=== PATIENT | female | born 1980 | race Caucasian/White ===

== ENCOUNTER 2018-04-08 20:17 | Emergency (ER) | payer BC, MEDICAID ==
[~2018-04-08] VITALS: Ht 152.4 cm; Wt 79.4 kg
[2018-04-08 20:29] VITALS: BP_SYST 135
--- NOTE | 2018-04-08 20:34 | NUR ---
Placed in room 01 . Placed on clinical assoc, blood pressure machine and pulse oximeter. To gown for exam. Side rails up.
--- NOTE | 2018-04-08 20:50 | NUR ---
ER at bedside examining patient.
--- NOTE | 2018-04-08 20:50 | NUR ---
Pt is AAOx4. Pt states abd pain 07/10, which feels like "cramping" that arose suddenly earlier today. Pt states that she originally thought it was food poisoning because she has thrown up numerous times after she ate earlier today. Pt states + nausea and vomitting, "more times than she can count". VSS. Will continue to monitor.
[2018-04-08] MEDS ORDERED: MORPHINE 4 MG/ML INJ. SYRINGE IVP ONE (21:00)
[2018-04-08] MEDS ORDERED: NS 1000 ML BAG IV ONE (21:00)
[2018-04-08] MEDS ORDERED: PROCHLORPERAZINE EDISYLATE 10 MG/2 ML VIAL IVP ONE (21:00)
[2018-04-08] MEDS ORDERED: DIPHENHYDRAMINE INJ 50 MG/ML VIAL IVP ONE (21:00)
[2018-04-08 21:12] LABS: BILIRUBIN,URINE NEGATIVE (NEGATIVE); BLOOD, URINE NEGATIVE (NEGATIVE); CLARITY/URINE CLEAR (CLEAR); COLOR,URINE YELLOW (YELLOW); GLUCOSE,URINE NEGATIVE (NEGATIVE); KETONES,URINE 3+ (NEGATIVE); LEUKOCYTE ESTERASE ,URINE NEGATIVE (NEGATIVE); NITRITE, URINE NEGATIVE (NEGATIVE); PROTEIN URINE 1+ (NEGATIVE); UROBILINOGEN,URINE 0.2 (0.2-1.0)
[2018-04-08 21:32] LABS: BACTERIA,URINE FEW /HPF (None Seen); MUCUS,URINE 1+ /LPF (None Seen); RBC,URINE 0-3 /HPF (0-3)
[2018-04-08 21:33] LABS: HEMOGLOBIN 13.7 g/dL (12.0-16.0); LYMPHOCYTES # (AUTO) 0.7 K/uL (1.0-5.5); MONOCYTES # (AUTO) 0.2 K/uL (0.0-1.0); NEUTROPHILS # (AUTO) 8.2 K/uL (1.8-7.7)
[2018-04-08 21:38] LABS: BASOPHILS # (AUTO) 0.1 K/uL (0.0-0.2); BASOPHILS % (AUTO) 1.4 % (0.0-2.0); EOSINOPHILS % (AUTO) 0.1 % (0.0-4.0); HEMATOCRIT 39.5 % (36-48); LYMPHOCYTES % (AUTO) 7.6 % (20.5-51.5); MEAN CORPUSCULAR HEMOGLOBIN 32 pg (27-31); MEAN CORPUSCULAR HGB CONC 35 % (32-36); MEAN CORPUSCULAR VOLUME 91 fL (79.0-98.0); MONOCYTES % (AUTO) 2.4 % (1.7-9.3); NEUTROPHILS % (AUTO) 88.5 % (40.0-70.0); PLATELET COUNT (AUTO) 221 K/uL (130-430); RED BLOOD CELL COUNT(AUTO) 4.33 MIL/uL (4.2-6.2); WHITE BLOOD COUNT (AUTO) 9.2 K/uL (4.8-10.8)
[2018-04-08 21:42] LABS: CALCIUM 10.2 mg/dL (8.4-11.0); CREATININE 1.02 mg/dL (0.55-1.30); POTASSIUM 3.7 mmol/L (3.5-5.1)
[2018-04-08 21:47] LABS: ALBUMIN 4.3 g/dL (3.4-4.8); TOTAL BILIRUBIN 0.5 mg/dL (0.0-1.0)
--- NOTE | 2018-04-08 22:00 | NUR ---
Pt resting comfortably in bed with eyes closed, symmetrical rise and fall of chest noted, breathing is even and unlabored. VSS, no signs of distress noted. Family remains at bedside. Will continue to monitor.
--- NOTE | 2018-04-08 23:00 | NUR ---
Pt continues to rest comfortably in bed, VSS, no signs of distress noted. Pt states pain is "a lot better than before". Will continue to monitor.
[2018-04-09 00:16] VITALS: BP_SYST 133
--- NOTE | 2018-04-09 00:16 | NUR ---
Patient given written and verbal discharge instructions and verbalizes understanding. ER MD discussed with patient the results and treatment provided. Patient in stable condition. ID arm band removed. IV catheter removed intact and dressing applied, no active bleeding. Rx of Zofran given. Patient educated on pain management and to follow up with PMD. Pain Scale 0/10. Opportunity for questions provided and answered. Medication side effect fact sheet provided.
== END 2018-04-09 00:16 | disposition home or self-care (01) ==
LOC: SED 20:17
DX: R10.84 Generalized abdominal pain (principal); R11.2 Nausea with vomiting, unspecified; E05.90 Thyrotoxicosis, unspecified without thyrotoxic crisis or storm; Z85.41 Personal history of malignant neoplasm of cervix uteri
CPT/HCPCS: 36415; 80053; 81000; 83605; 85025; 87040; 87086; 96361; 96374; 96375; 99285; J0780; J1200; J2270; J7030

== ENCOUNTER 2019-02-28 20:40 | Emergency (ER) | payer BC ==
[~2019-02-28] VITALS: Ht 152.4 cm; Wt 80.7 kg
[2019-02-28 20:52] VITALS: BP_SYST 121
[2019-02-28] MEDS ORDERED: NACL 0.9% 1,000 ML IV ONE (21:15)
[2019-02-28 22:00] LABS: CALCIUM 9.1 mg/dL (8.4-11.0); CREATININE 1.1 mg/dL (0.55-1.30); POTASSIUM 3.9 mmol/L (3.5-5.1)
[2019-02-28 22:05] LABS: PROTHROMBIN TIME 9.9 SECS (9.5-12.5)
[2019-02-28 22:07] LABS: WHITE BLOOD COUNT (AUTO) 5.7 K/uL (4.8-10.8)
[2019-02-28 22:08] LABS: BASOPHILS % (AUTO) 0.6 % (0.0-2.0); EOSINOPHILS % (AUTO) 2.3 % (0.0-4.0); HEMATOCRIT 41.4 % (36-48); HEMOGLOBIN 13.8 g/dL (12.0-16.0); LYMPHOCYTES # (AUTO) 1.7 K/uL (1.0-5.5); LYMPHOCYTES % (AUTO) 30.2 % (20.5-51.5); MEAN CORPUSCULAR HEMOGLOBIN 30 pg (27-31); MEAN CORPUSCULAR HGB CONC 33 % (32-36); MEAN CORPUSCULAR VOLUME 90 fL (79.0-98.0); MONOCYTES % (AUTO) 6.1 % (1.7-9.3); NEUTROPHILS # (AUTO) 3.5 K/uL (1.8-7.7); NEUTROPHILS % (AUTO) 60.8 % (40.0-70.0); PLATELET COUNT (AUTO) 227 K/uL (130-430); RED BLOOD CELL COUNT(AUTO) 4.58 MIL/uL (4.2-6.2); RED CELL DISTRIBUTION WIDTH 13.3 % (9.0-15.0)
[2019-02-28 22:09] LABS: EOSINOPHILS # (AUTO) 0.1 K/uL (0.0-0.4); MONOCYTES # (AUTO) 0.3 K/uL (0.0-1.0)
[2019-02-28 22:15] LABS: ALBUMIN 3.7 g/dL (3.4-4.8); THYROID STIMULATING HORMONE 42.17 uIu/mL (0.36-3.74); TOTAL BILIRUBIN 0.2 mg/dL (0.0-1.0)
[2019-02-28] MEDS ORDERED: LEVOTHYROXINE SODIUM 0.1 MG VIAL IVP ONE ×2 (22:30→22:48)
[2019-03-01 00:18] VITALS: BP_SYST 118
== END 2019-03-01 00:18 | disposition home or self-care (01) ==
LOC: SED 20:40
DX: E03.9 Hypothyroidism, unspecified (principal); Z85.41 Personal history of malignant neoplasm of cervix uteri
CPT/HCPCS: 36415; 80053; 84443; 85025; 85610; 85730; 96374; 99283; J7030

== ENCOUNTER 2024-09-22 03:03 | Inpatient (IN) | payer BC, OTHER ==
[~2024-09-22] VITALS: Ht 152.4 cm; Wt 81.6 kg
[2024-09-22 03:20] VITALS: BP_SYST 145; PULSE 69; RESP 16; TEMP 97.7; O2SAT 100
[2024-09-22 03:56] LABS: BILIRUBIN,URINE NEGATIVE (NEGATIVE); BLOOD, URINE NEGATIVE (NEGATIVE); CLARITY/URINE CLEAR (CLEAR); COLOR,URINE YELLOW (YELLOW); GLUCOSE,URINE NEGATIVE (NEGATIVE); KETONES,URINE NEGATIVE (NEGATIVE); LEUKOCYTE ESTERASE ,URINE NEGATIVE (NEGATIVE); NITRITE, URINE NEGATIVE (NEGATIVE); PH,URINE 6.5 (5.0-8.0); PROTEIN URINE NEGATIVE (NEGATIVE); UROBILINOGEN,URINE 0.2 (0.2-1.0)
[2024-09-22 04:09] LABS: BASOPHILS % (AUTO) 0.4 % (0.0-2.0); EOSINOPHILS # (AUTO) 0.1 K/uL (0.0-0.4); HEMATOCRIT 42.1 % (36-48); HEMOGLOBIN 14.1 g/dL (12.0-16.0); LYMPHOCYTES # (AUTO) 0.9 K/uL (1.0-5.5); LYMPHOCYTES % (AUTO) 13.2 % (20.5-51.5); MEAN CORPUSCULAR HEMOGLOBIN 30 pg (27-31); MEAN CORPUSCULAR HGB CONC 34 % (32-36); MEAN CORPUSCULAR VOLUME 90 fL (79.0-98.0); MONOCYTES # (AUTO) 0.5 K/uL (0.0-1.0); MONOCYTES % (AUTO) 7.3 % (1.7-9.3); NEUTROPHILS # (AUTO) 5.5 K/uL (1.8-7.7); NEUTROPHILS % (AUTO) 77.1 % (40.0-70.0); PLATELET COUNT (AUTO) 250 K/uL (130-430); RED BLOOD CELL COUNT(AUTO) 4.67 MIL/uL (4.2-6.2); RED CELL DISTRIBUTION WIDTH 13.2 % (9.0-15.0); WHITE BLOOD COUNT (AUTO) 7.1 K/uL (4.8-10.8)
[2024-09-22 04:35] LABS: ALBUMIN 3.9 g/dL (3.4-4.8); BILIRUBIN,DIRECT 0.1 mg/dL (0.0-0.3); CALCIUM 9.6 mg/dL (8.4-11.0); CREATININE 1.03 mg/dL (0.55-1.30); POTASSIUM 3.8 mmol/L (3.5-5.1); TOTAL BILIRUBIN 0.4 mg/dL (0.0-1.0); TOTAL PROTEIN, SERUM 7.5 g/dL (6.4-8.3)
[2024-09-22] MEDS: KETOROLAC TROMETHAMINE 30 MG VIAL IVP ONE (05:21)
[2024-09-22] MEDS: NACL 0.9% 1,000 ML IV ONE (05:23)
[2024-09-22] MEDS ORDERED: VENL150C53 PO (06:15)
[2024-09-22] MEDS ORDERED: LEVO112C2 PO (06:15)
[2024-09-22] MEDS: ONDANSETRON HCL 4 MG/2 ML VIAL IVP ONE (07:37)
[2024-09-22] MEDS: MORPHINE 2 MG/ML INJ. SYRINGE IVP ONE (09:58)
[2024-09-22] MEDS: D5/0.45 NS 1,000 ML IV ONE (09:59)
[2024-09-22] MEDS ORDERED: CEFTRIAXONE SOD 1 GM/ D5W 50 ML IV ONE (10:15)
[2024-09-22] MEDS ORDERED: cefTRIAXone 1 GM VIAL ONE (10:16)
[2024-09-22] MEDS ORDERED: [UNRECOGNIZED DRUG - OTHER] PO (11:05)
[2024-09-22] MEDS ORDERED: VENL150C5 PO (11:05)
[2024-09-22] MEDS: ONDANSETRON HCL 4 MG/2 ML VIAL IVP PRN (11:20)
[2024-09-22] MEDS: HYDROmorphone 1 MG/ML INJ. CARTRIDGE IVP PRN (11:21)
[2024-09-22 14:00] VITALS: BP_SYST 147; PULSE 60; RESP 18; TEMP 97.3; O2SAT 97
[2024-09-22] MEDS: D5/0.45 NS 1,000 ML IV SCH (14:11)
[2024-09-22 15:38] VITALS: BP_SYST 145; PULSE 69; RESP 16; TEMP 97.7; O2SAT 100
[2024-09-22 18:12] LABS: PROTHROMBIN TIME 10.2 SECS (9.5-12.5)
[2024-09-23] MEDS ORDERED: PANTOPRAZOLE SODIUM 40 MG/VIAL (PROTONIX) IVP SCH (09:00)
[2024-09-23] MEDS ORDERED: cefTRIAXone 1 GM VIAL IM ONE (09:00)
[2024-09-23] MEDS ORDERED: CEFTRIAXONE SOD 1 GM/ D5W 50 ML IV SCH (09:00)
== END 2024-09-22 19:00 | disposition left against medical advice (07) | DRG 694 ==
LOC: SED 03:03 → SMU 09:22
PROVIDERS: ADMIT Specialist; ATTEND Specialist
DX: N13.30 Unspecified hydronephrosis (principal); Z53.29 Procedure and treatment not carried out because of patient's decision for other reasons; Z79.899 Other long term (current) drug therapy; Z88.8 Allergy status to other drugs, medicaments and biological substances
CPT/HCPCS: 36415; 80048; 80076; 81001; 81003; 83690; 85025; 85610; 87040; 99285; J0696; J1171; J1885; J2270; J2405; J7030; J7060